=== PATIENT | male | born 1985 | race Caucasian/White ===

== ENCOUNTER 2020-07-01 16:55 | Emergency (ER) | payer OTHER, SELFPAY ==
[2020-07-01 17:11] VITALS: BP 152/89; PULSE 87; RESP 16; TEMP 36.7; O2SAT 97
--- NOTE | 2020-07-01 17:16 | DI.RAD.S_ITS ---
PROCEDURE: XR TOE RT MIN 2V INDICATIONS: dropped concrete on toe TECHNIQUE: 2 views of the 1st toe(s) acquired. COMPARISON: None. FINDINGS: Bones: No fractures or dislocations. No suspicious bony lesions. Bipartite medial sesamoid. Soft tissues: No suspicious soft tissue densities. IMPRESSION: No fracture or dislocation. Dictated by: Mary Dunn M.D. on 07/01/2020 at 16:48 Approved by: Mary Dunn M.D. on 07/01/2020 at 16:51
[2020-07-01] MEDS: TET,DIPH,PERTUSS(ACELL),VAC/PF 0.5 ML SYRINGE IM (20:01)
[2020-07-01] MEDS: KETOROLAC 60 MG/2 ML VIAL 30 MG IM (20:03)
--- NOTE | 2020-07-01 20:13 | ED.LOWEXIN ---
HPI - Extremity Injury (Lower) <FABIANA Lopez - Last Filed: 07/01/20 20:24> General Chief Complaint: Extremity Injury, Lower Stated Complaint: dropped heavy item on right foot Time Seen by Provider: 07/01/20 19:19 Source: patient Mode of arrival: Ambulatory Limitations: no limitations History of Present Illness HPI Narrative: The patient is a 34-year-old male nonsmoker who denies pertinent medical history presents with a chief complaint of having dropped a heavy item on his right foot. He states that he accidentally dropped a piece of cement wrapped in metal on his right foot at approximately 2:30 p.m.. He states that his bruise, painful to move, has an abrasion on the top. Denies any previous injuries to this foot. States he can bear weight. Related Data Previous Rx's Medication Instructions Recorded amoxicillin-pot clavulanate 875 mg PO BID #19 tab 10/10/17 [Augmentin] Allergies Allergy/AdvReac Type Severity Reaction Status Date / Time No Known Drug Allergies Allergy Verified 07/01/20 19:28 Review of Systems <FABIANA Lopez - Last Filed: 07/01/20 20:24> Review of Systems Narrative: GENERAL: Denies chills, fatigue, malaise, fever, sweats. HEENT: Denies sinus pain, ear pain, sore throat, difficulty swallowing, dizziness. RESPIRATORY: Denies dyspnea, cough, wheezing, hemoptysis, sputum. CARDIOVASCULAR: Denies chest pain, palpitations, orthopnea, edema, GASTROINTESTINAL: Denies nausea, vomiting, abdominal pain, diarrhea, constipation, melena. : Denies dysuria, frequency, incontinence, hematuria, urinary retention. MUSCULOSKELETAL: See HPI SKIN: See HPI NEUROLOGIC: Denies weakness, headache, numbness, change in speech, confusion, seizures, incoordination. PSYCHIATRIC: No concerning psychosocial issues. 12 point review of systems is negative except for those stated above Patient History <FABIANA Lopez - Last Filed: 07/01/20 20:24> Social History Smoking Status: Never smoker Smoking Status: Never smoker alcohol intake frequency: a few times a month Substance Use Type: does not use Exam <FABIANA Lopez Last Filed: 07/01/20 20:24> Narrative Exam Narrative: GENERAL: This is a well-nourished, well-developed patient, in no acute distress HEAD: Atraumatic. Normocephalic. No temporal or scalp tenderness. EYES: Pupils equal round and reactive. Extraocular motions intact. No scleral icterus. No injection or drainage. ENT: Nose without bleeding, purulent drainage or septal hematoma. Wearing a mass. Airway patent. NECK: Trachea midline. No JVD or lymphadenopathy. Supple, nontender, no meningeal signs. CARDIOVASCULAR: Regular rate and rhythm RESPIRATORY: No cough. No increased respiratory effort. No accessory muscle GASTROINTESTINAL: Abdomen soft, non-tender, nondistended. No hepato-splenomegaly, or palpable masses. No guarding. EXTREMITIES: Right great toe with ecchymosis from bottom of nail down on to dorsum of foot. Abrasion noted at base of nail. 2 mm subungual hematoma noted. Positive pedal pulses right foot. Able to flex and extend right toe against resistance. Decreased range of motion all gay. Cap refill less than 2 seconds right great toe. NEURO: AOx3. SKIN: See extremity exam Initial Vital Signs Initial Vital Signs: Vital Signs Temperature 98.1 F 07/01/20 17:11 Pulse Rate 87 07/01/20 17:11 Respiratory Rate 16 07/01/20 17:11 Blood Pressure 152/89 H 07/01/20 17:11 Pulse Oximetry 97 07/01/20 17:11 <Hetal Gil MD - Last Filed: 07/02/20 01:42> Initial Vital Signs Initial Vital Signs: Vital Signs Temperature 98.1 F 07/01/20 17:11 Pulse Rate 87 07/01/20 17:11 Respiratory Rate 16 07/01/20 17:11 Blood Pressure 152/89 H 07/01/20 17:11 Pulse Oximetry 97 07/01/20 17:11 Procedures <FABIANA Lopez - Last Filed: 07/01/20 20:24> Orthopedic Splinting/Casting Injury #1: Side: left Lower Extremity Injury Location: foot Lower Extremity Immobilizer: post-op shoe Post splinting neuro exam: intact Post splinting vascular exam: intact Scores <FABIANA Lopez - Last Filed: 07/01/20 20:24> GCS Didier coma scale eye opening: Spontaneous Didier coma scale verbal response: Orientated Didier coma scale motor response: Obey commands Didier coma scale total score: 15 Course <FABIANA Lopez - Last Filed: 07/01/20 20:24> Orders Ordered: ED Orders 07/01/20 17:16 XR toe RT min 2V Stat Discontinued Medications Diphtheria/Tetanus/Acell Pertussis (Adacel) 0.5 ml IM .ONCE ONE Stop: 07/01/20 19:24 Last Admin: 07/01/20 20:01 Dose: 0.5 ml Documented by: YING Ketorolac Tromethamine (Toradol) 30 mg IM NOW ONE Stop: 07/01/20 19:24 Last Admin: 07/01/20 20:03 Dose: 30 mg Documented by: YING Vital Signs Vital signs: Vital Signs - 8 hr 07/01/20 20:22 Pulse Rate 62 Respiratory Rate 14 Blood Pressure 147/97 H Pulse Oximetry 100 <Hetla Gil MD - Last Filed: 07/02/20 01:42> Orders Ordered: ED Orders 07/01/20 17:16 XR toe RT min 2V Stat Discontinued Medications Diphtheria/Tetanus/Acell Pertussis (Adacel) 0.5 ml IM .ONCE ONE Stop: 07/01/20 19:24 Last Admin: 07/01/20 20:01 Dose: 0.5 ml Documented by: YING Ketorolac Tromethamine (Toradol) 30 mg IM NOW ONE Stop: 07/01/20 19:24 Last Admin: 07/01/20 20:03 Dose: 30 mg Documented by: YING Vital Signs Vital signs: Vital Signs - 8 hr 07/01/20 20:22 Pulse Rate 62 Respiratory Rate 14 Blood Pressure 147/97 H Pulse Oximetry 100 MDM - Extremity Injury (Lower) <FABIANA Lopez - Last Filed: 07/01/20 20:24> Imaging Data Extremity x-ray #1: Radiologist's Impression: [address] [place] [id number] XRay Report Signed Patient: Donta Bill RMR#: [id number] : 1985Acct:[id number] Age/Sex: 34 / MDate of Service: 07/01/20 Loc: ED Accession Number: [id number] Procedure: XR toe RT min 2V Ordering Provider: Lucrecia Means D.O. PROCEDURE: XR TOE RT MIN 2V INDICATIONS: dropped concrete on toe TECHNIQUE: 2 views of the 1st toe(s) acquired. COMPARISON: None. FINDINGS: Bones: No fractures or dislocations. No suspicious bony lesions. Bipartite medial sesamoid. Soft tissues: No suspicious soft tissue densities. IMPRESSION: No fracture or dislocation. Dictated by: Mary Dunn M.D. on 07/01/2020 at 16:48 Approved by: Mary Dunn M.D. on 07/01/2020 at 16:51 [facility] Narrative Medical decision making narrative: The patient is a 34-year-old male who presents with a chief complaint of right great toe injury after dropping cement on it. X-rays negative. Patient is neurovascularly intact. Encouraged rest ice compression elevation as well as [id number] pain medications as needed and able. Given abrasion, tetanus was updated. Discussed monitoring for signs and symptoms of infection such as red as swelling pus etcetera. Discussed the possibility of an occult fracture and encouraged follow-up with a primary care provider or [facility] provider in the next few days. Patient has no questions or concerns upon discharge and states understanding return precautions as well as follow-up care discussed coming back to the ER for acute concerns such as decreased circulation to toes. Patient declines pain medication prescription. Discharge Plan Departure Patient Disposition: Home Clinical Impression: Abrasion Contusion of toe of right foot Qualifiers: Encounter type: initial encounter Toe: great toe Damage to nail status: without damage Qualified Code(s): S90.111A - Contusion of right great toe without damage to nail, initial encounter Discharge Date/Time: 07/01/20 20:37 Instructions: DI for Contusion, DI for Abrasion Activity Restrictions/Additional Instructions: As I discussed, your x-ray shows no acute fracture. This does not rule out a soft tissue injury such as a ligament or tendon injury. It is important that you follow up with primary care provider, especially if worsening or no improvement. There can be fractures that did not show up on initial x-ray. I discussed, please use rest ice compression elevation as well as [id number] pain medications as needed and able. Please follow-up with [facility] provider. Have also given you contact information [facility] health patient resource coordinator, who can help you identify new primary care provider in the area. Please come back to emergency department for any acute concerns such as chest pain, shortness of breath, concern of heart attack or stroke or lack of circulation to your toe. Prescriptions: No Action amoxicillin-pot clavulanate [Augmentin] 875 MG/125 MG tablet 875 mg PO BID Qty: 19 RF: 0 Referrals: [facility] [Outside] Stand Alone Forms: Work Release Note <Hetal Gil MD - Last Filed: 07/02/20 01:42> [facility] I was immediately available in the department for consultation throughout this patient's visit. I agree with documentation as above. Hetal Gil MD
[2020-07-01 20:22] VITALS: BP 147/97; PULSE 62; RESP 14; O2SAT 100
== END 2020-07-01 20:37 | disposition home or self-care (01) ==
PROVIDERS: Emergency Provider Nurse Practitioner Family
DX: S90.111A Contusion of right great toe without damage to nail, initial encounter (principal); S90.811A Abrasion, right foot, initial encounter; W22.8XXA Striking against or struck by other objects, initial encounter; Z23 Encounter for immunization; Y99.0 Civilian activity done for income or pay
CPT/HCPCS: 73660; 90471; 96372; 99283; 99284; 90715; J1885

== ENCOUNTER 2020-07-27 04:29 | Emergency (ER) | payer OTHER, SELFPAY ==
[2020-07-27] VITALS (9 sets, daily range): BP systolic 108–143; BP diastolic 60–92; PULSE 74–101; RESP 18; TEMP 36.4; O2SAT 91–99; BMI 34.8
--- NOTE | 2020-07-27 04:47 | DI.CT.S_ITS ---
PROCEDURE: CT KIDNEY URETER BLADDER (KUB) INDICATIONS: severe left flank pain TECHNIQUE: Noncontrast 5 mm thick sections acquired from the diaphragms to the symphysis. 5 mm thick coronal and sagittal reformats were then performed. For radiation dose reduction, the following was used: automated exposure control, adjustment of mA and/or kV according to patient size. COMPARISON: None. FINDINGS: Image quality: Excellent. Lung bases: Lung bases are clear. Heart size is normal. Urinary system: Both kidneys are normal in size. No kidney stones. Mild left hydronephrosis and left hydroureter secondary to distal ureteral stone measuring 2 mm seen on axial image 84. Distal ureteral stone visualized near the level of the left ureterovesicular junction. No hydronephrosis or perinephric fat stranding. Right ureter is normal in course and caliber. Bladder wall thickness is normal; no calcified bladder stones. Other solid organs: Liver is normal in size. Gallbladder is unremarkable. Pancreas is normal in contours. Spleen is normal in size. No adrenal nodules. Peritoneum and bowel: Unenhanced bowel loops demonstrate normal wall thickness and caliber. No free fluid or air. Normal appendix. Nodes and vessels: No retroperitoneal or mesenteric adenopathy by size criteria. Aorta and inferior vena cava are normal in caliber. Abdominal wall: No ventral hernias. Pelvis: No free pelvic fluid. No inguinal hernias or adenopathy. Bones: No suspicious bony lesions. No acute vertebral body compression fractures. IMPRESSION: Obstructing 2 mm distal left ureteral stone with associated mild left hydroureteronephrosis. No significant discrepancy with the scene shifter radiology preliminary report. Dictated by: Andrew Marie M.D. on 07/27/2020 at 7:31 Approved by: Andrew Marie M.D. on 07/27/2020 at 7:36
[2020-07-27 05:02] LABS: Add Manual Diff / Slide Review NO; Basophils Absolute Auto 300 /uL (0-100); Basophils Percent Auto 2.1 % (0-2); Eosinophils Absolute Auto 200 /uL (0-450); Eosinophils Percent Auto 1.1 % (2-4); Hematocrit 44.2 % (41-53); Hemoglobin 15.2 g/dL (13.5-17.5); Lymphocytes Absolute Auto 3200 /uL (1100-4500); Lymphocytes Percent Auto 21.7 % (25-40); Mean Corpuscular HGB Conc 34.3 % (30-36); Mean Corpuscular Hemoglobin 29.8 PG (26-34); Mean Corpuscular Volume 86.7 fL (80-100); Monocytes Absolute Auto 500 /uL (0-900); Monocytes Percent Auto 3.4 % (3-14); Neutrophils Absolute Auto 10400 /uL (1500-7000); Neutrophils Percent Auto 71.7 % (50-75); Platelet Count 247 X10^3/uL (150-400); Red Blood Cell Count 5.09 X10^6/uL (4.5-5.9); Red Cell Distribution Width 13.9 % (11.6-14.8); White Blood Cell Count 14.5 X10^3/uL (4.5-11.0)
[2020-07-27] MEDS: SODIUM CHLORIDE 0.9% 1,000 ML 1000 ML IV (05:02)
[2020-07-27] MEDS: KETOROLAC 60 MG/2 ML VIAL 15 MG IV (05:02)
[2020-07-27 05:09] LABS: BUN Creatinine Ratio 24.1 (6-22); Blood Urea Nitrogen 20 mg/dL (9-20); Calcium 9.1 mg/dL (8.4-10.2); Carbon Dioxide 22 mmol/L (22-32); Chloride 107 mmol/L (98-107); Estimated Glomerular Filt Rate > 60.0 mL/min (>60); Glucose 132 mg/dL (70-100); HEMOLYSIS 15 (0-50); Potassium 3.9 mmol/L (3.4-5.1); Sodium 139 mmol/L (137-145)
[2020-07-27] MEDS: SODIUM CHLORIDE 0.9% IV (05:22)
[2020-07-27] MEDS: LIDOCAINE 2% IV (05:22)
--- NOTE | 2020-07-27 05:33 | ED_ITS ---
HPI - Male Genitourinary General Chief complaint: Urogenital-Male Stated complaint: woke up with pain in kidney area Time Seen by Provider: 07/27/20 04:30 Source: patient and family Mode of arrival: Ambulatory Limitations: no limitations History of Present Illness HPI Narrative: 34-year-old male nonsmoker with noncontributory medical history presents with his father and a chief complaint of a sudden onset and severe left flank pain that woke him up about an hour ago. He states that since then he has been unable to urinate. He denies any fever chills but has been nauseated. He denies any provocation, palliation or radiation of his pain and states it seems to come and go with a mind of its. Furthermore, he finds that when the pain intensifies he finds himself pacing and attempt to become more comfortable. He has had no constipation or diarrhea. He denies any burning, frequency or urgency with urinating into this. He denies any history of kidney stones. He denies any exposure to persons known to have coronavirus Onset (ago): hour(s) Duration: intermittent and progressively worsening Radiation: left flank Relieving factors: none Exacerbating factors: none Related Data Previous Rx's Medication Instructions Recorded amoxicillin-pot clavulanate 875 mg PO BID #19 tab 10/10/17 [Augmentin] hydrocodone-acetaminophen 1 tab PO Q4-6H PRN #10 tab 07/27/20 ketorolac 10 mg PO Q6H PRN #14 tab 07/27/20 ondansetron 4 mg PO TID-QID PRN #10 tab 07/27/20 tamsulosin [Flomax] 0.4 mg PO DAILY #10 cap 07/27/20 Allergies Allergy/AdvReac Type Severity Reaction Status Date / Time No Known Drug Allergies Allergy Verified 07/01/20 19:28 Review of Systems Constitutional Constitutional: Denies chills, Denies fatigue, Denies fever(s), Denies frequent falls, Denies lethargy and Denies weakness Eyes Eyes: Denies change in vision, Denies eye discharge, Denies irritation and Denies loss of vision ENT Ears, Nose, Mouth, and Throat: Denies change in voice, Denies dizziness, Denies neck pain, Denies sore throat and Denies throat swelling Cardiovascular Cardiovascular: Denies chest pain, Denies irregular heart rhythm, Denies lightheadedness, Denies palpitations, Denies dyspnea, Denies dyspnea on exertion and Denies orthopnea Respiratory Respiratory: Denies cough, Denies dyspnea, Denies dyspnea on exertion and Denies wheezing Gastrointestinal Gastrointestinal: Denies abdominal pain, Denies change in bowel habits, Denies diarrhea, Denies nausea and Denies vomiting Musculoskeletal Musculoskeletal: Denies neck pain and Denies numbness Integumentary/Breasts Skin/Breast: Denies pruritus, Denies erythema, Denies rash and Denies wounds Neurologic Neurologic: Denies behavioral changes, Denies confusion, Denies dizziness, Denies frequent falls, Denies loss of vision, Denies numbness and Denies weakness Psychiatric Psychiatric: Denies anxiety, Denies behavioral changes, Denies confusion, Denies depression, Denies homicidal ideation and Denies suicidal ideation Endocrine Endocrine: Denies fatigue, Denies flushing and Denies palpitations Hematologic/Lymphatic Hematologic/Lymphatic: Denies easy bruising Allergic/Immunologic Allergic/Immunologic: Denies urticaria, Denies throat swelling and Denies wheezing Patient History Social History Smoking Status: Never smoker Smoking Status: Never smoker alcohol intake frequency: a few times a month Substance Use Type: does not use Exam Initial Vital Signs Initial Vital Signs: Vital Signs Pulse Rate 84 07/27/20 04:43 Blood Pressure 143/92 H 07/27/20 04:43 Pulse Oximetry 99 07/27/20 04:43 Course Orders Ordered: ED Orders 07/27/20 04:47 CT kidney ureter bladder (KUB) Stat 07/27/20 04:53 Basic Metabolic Panel Stat Complete Blood Count AUTO DIFF Stat 07/27/20 07:15 Urine Microscopic Stat Discontinued Medications Hydrocodone Bitart/Acetaminophen (Vicodin 5/325 Prepack) 1 bottle MISC SEEINSTR ONE Stop: 07/27/20 07:23 Hydromorphone HCl (Dilaudid) 1 mg IV NOW ONE Stop: 07/27/20 05:31 Last Admin: 07/27/20 05:35 Dose: 1 mg Documented by: EBONY Hydromorphone HCl (Dilaudid) 0.5 mg IV NOW ONE Stop: 07/27/20 05:55 Last Admin: 07/27/20 06:05 Dose: 0.5 mg Documented by: EBONY Sodium Chloride (Normal Saline 0.9%) 1,000 mls @ 1,000 mls/hr IV BOLUS ONE Stop: 07/27/20 05:46 Last Infusion: 07/27/20 06:36 Dose: 0 mls/hr Documented by: Admin: 07/27/20 05:02 Dose: 1,000 mls/hr Documented by: EBONY Lidocaine HCl 8.5 ml/ Sodium (Chloride) 58.5 mls @ 351 mls/hr IV NOW ONE Stop: 07/27/20 05:16 Last Infusion: 07/27/20 05:36 Dose: 0 mls/hr Documented by: Admin: 07/27/20 05:22 Dose: 351 mls/hr Documented by: EBONY Ketorolac Tromethamine (Toradol) 15 mg IV NOW ONE Stop: 07/27/20 04:48 Last Admin: 07/27/20 05:02 Dose: 15 mg Documented by: EBONY Ondansetron HCl (Zofran) 4 mg IV NOW ONE Stop: 07/27/20 05:31 Last Admin: 07/27/20 05:35 Dose: 4 mg Documented by: EBONY Ondansetron HCl (Zofran Odt Prepack) 1 bottle MISC SEEINSTR ONE Stop: 07/27/20 07:23 Vital Signs Vital signs: Vital Signs - 8 hr 07/27/20 04:43 07/27/20 04:46 07/27/20 05:30 Temperature 97.5 F L Pulse Rate 84 83 78 Respiratory Rate 18 Blood Pressure 143/92 H 143/92 H Pulse Oximetry 99 99 98 07/27/20 06:00 07/27/20 06:16 07/27/20 06:30 Temperature Pulse Rate 74 76 89 Respiratory Rate Blood Pressure 124/76 127/76 Pulse Oximetry 95 91 96 MDM - Male Genitourinary Lab Data Result diagrams: 07/27/20 04:53 07/27/20 04:53 Labs: Lab Results 07/27/20 07/27/20 Range/Units 04:53 04:53 WBC 14.5 H (4.5-11.0) X10^3/uL RBC 5.09 (4.5-5.9) X10^6/uL Hgb 15.2 (13.5-17.5) g/dL Hct 44.2 (41-53) % MCV 86.7 (80-100) fL MCH 29.8 (26-34) PG MCHC 34.3 (30-36) % RDW 13.9 (11.6-14.8) % Plt Count 247 (150-400) X10^3/uL Neut % (Auto) 71.7 (50-75) % Lymph % (Auto) 21.7 L (25-40) % Mcdonald % (Auto) 3.4 (3-14) % Eos % (Auto) 1.1 L (2-4) % Baso % (Auto) 2.1 H (0-2) % Neut # (Auto) 73771 H (9587-9100) /uL Lymph # (Auto) 3200 (7855-3989) /uL Mcdonald # (Auto) 500 (0-900) /uL Eos # (Auto) 200 (0-450) /uL Baso # (Auto) 300 H (0-100) /uL Sodium 139 (137-145) mmol/L Potassium 3.9 (3.4-5.1) mmol/L Chloride 107 (98-107) mmol/L Carbon Dioxide 22 (22-32) mmol/L BUN 20 (9-20) mg/dL Creatinine 0.83 (0.66-1.25) mg/dL Estimated GFR > 60.0 (>60) mL/min BUN/Creatinine Ratio 24.1 H (6-22) Glucose 132 H (70-100) mg/dL Calcium 9.1 (8.4-10.2) mg/dL Urine Dip Bedside Urine Glucose Negative Bedside Urine Bilirubin - Negative Bedside Urine Ketone +/- 5 Urine Specific [place] 1.03 Bedside Urine Occult Blood + Bedside Urine pH 6 Bedside Urine Protein - Negative Bedside Urine Urobilinogen - Negative Bedside Urine Nitrite - Negative Bedside Urine Leukocytes - Negative Esterase Discharge Plan Departure Patient Disposition: Home Clinical Impression: Kidney stone on left side Instructions: DI for Kidney Stones Activity Restrictions/Additional Instructions: *You have been diagnosed with [acute left-sided kidney stone] *What to do: *Take medications as directed *Follow up with your primary care provider in 2-3 days, call for an appointment. Let them know you were seen in the Emergency Department and that we ask that you be seen in follow up *Return to ER if you should have any new, worsening or concerning symptoms Prescriptions: New hydrocodone-acetaminophen 5-325 mg tablet 1 tab PO Q4-6H PRN (Reason: pain) Qty: 10 RF: 0 ketorolac 10 mg tablet 10 mg PO Q6H PRN (Reason: pain) Qty: 14 RF: 0 tamsulosin [Flomax] 0.4 mg capsule 0.4 mg PO DAILY Qty: 10 RF: 0 ondansetron 4 mg tablet,disintegrating 4 mg PO TID-QID PRN (Reason: nausea and vomiting) Qty: 10 RF: 0 No Action amoxicillin-pot clavulanate [Augmentin] 875 MG/125 MG tablet 875 mg PO BID Qty: 19 RF: 0 Referrals: Bruce Guerra MD [Physician] -
[2020-07-27] MEDS: HYDROMORPHONE 1 MG INJ IV (05:35)
[2020-07-27] MEDS: ONDANSETRON 4 MG/2 ML INJ IV (05:35)
[2020-07-27] MEDS: HYDROMORPHONE 0.5 MG INJ IV (06:05)
[2020-07-27] MEDS: HYDROCODONE/ACET 5/325 PREPACK 1 BOTTLE MISC (08:00)
[2020-07-27] MEDS: ONDANSETRON 4 MG ODT PREPACK 1 BOTTLE MISC (08:00)
[2020-07-27 08:20] LABS: Bacteria Urine Few (2-10); Culture Indicated Urine Cult Not Indicated; Mucus Urine 1+ (Negative); RBC Urine 30-100/HPF (0-5/HPF); WBC Urine 1-5/HPF (0-5/HPF)
== END 2020-07-27 08:14 | disposition home or self-care (01) ==
PROVIDERS: Emergency Provider Emergency Medicine
DX: N20.0 Calculus of kidney (principal)
CPT/HCPCS: 36415; 74176; 80048; 81003; 81015; 85025; 96361; 96374; 96375; 96376; 99284; J1170; J1885; J2405

== ENCOUNTER 2020-10-05 01:24 | Emergency (ER) | payer OTHER, SELFPAY ==
--- NOTE | 2020-10-05 02:04 | ED.GENADULT ---
HPI - General Adult General Chief complaint: Abdominal Pain Stated complaint: kidney pain Time Seen by Provider: 10/05/20 01:27 Source: patient Mode of arrival: Ambulatory Limitations: no limitations History of Present Illness HPI narrative: Patient is a 35-year-old male here for evaluation of left-sided flank pain. Patient states that it feels like a kidney stone that he had earlier this year. Started earlier in the day. Came into the emergency department because the pain was becoming unbearable for him at home. No fevers. Is able to urinate but does have urgency and frequency and hesitancy. He states that his last kidney stone he was able to pass on its own after 2 days. Related Data Previous Rx's Medication Instructions Recorded amoxicillin-pot clavulanate 875 mg PO BID #19 tab 10/10/17 [Augmentin] hydrocodone-acetaminophen 1 tab PO Q4-6H PRN #10 tab 07/27/20 ketorolac 10 mg PO Q6H PRN #14 tab 07/27/20 ondansetron 4 mg PO TID-QID PRN #10 tab 07/27/20 tamsulosin [Flomax] 0.4 mg PO DAILY #10 cap 07/27/20 hydrocodone-acetaminophen [[place]] 1 tab PO Q4-6H PRN #10 tab 10/05/20 ondansetron 4 mg PO Q6H PRN #14 tab 10/05/20 tamsulosin [Flomax] 0.4 mg PO DAILY #7 cap 10/05/20 Allergies Allergy/AdvReac Type Severity Reaction Status Date / Time No Known Drug Allergies Allergy Verified 07/01/20 19:28 Review of Systems Constitutional Constitutional: Denies fever(s) Gastrointestinal Comments: Left-sided flank pain Genitourinary Genitourinary: Denies dysuria, Reports urinary hesitancy and Reports urinary urgency Genitourinary: Denies dysuria, Reports urinary hesitancy and Reports urinary urgency Integumentary/Breasts Skin/Breast: Denies rash Neurologic Neurologic: Denies behavioral changes Psychiatric Psychiatric: Denies behavioral changes Hematologic/Lymphatic Hematologic/Lymphatic: Denies easy bleeding and Denies easy bruising Allergic/Immunologic Allergic/Immunologic: Denies urticaria Patient History Medical History Cervical lymphadenopathy Kidney stones Social History Smoking Status: Never smoker Smoking Status: Never smoker alcohol intake frequency: a few times a month Substance Use Type: does not use Exam Initial Vital Signs Initial Vital Signs: Vital Signs Temperature 98.1 F 10/05/20 02:07 Pulse Rate 95 H 10/05/20 02:07 Respiratory Rate 20 10/05/20 02:07 Blood Pressure 149/87 H 10/05/20 02:07 Pulse Oximetry 97 10/05/20 02:07 Const General: cooperative, healthy appearing and comfortable Limitations: mental status not altered HENMT Head: normal to inspection and normocephalic Resp Effort & Inspection: normal respiratory effort Cardio Rate: regular rate GI Inspection: non-distended Palpation: soft and No firm Back/Spine/Pelvis Back: No CVA tenderness Skin Lesions: no lesions Rashes: no rashes Neuro General: patient alert and patient awake Cognition: normal cognition Speech: speech normal Extrem General: normal to inspection and capillary refill normal Psych Appearance: grossly normal and well kempt Course Orders Ordered: ED Orders 10/05/20 02:20 Basic Metabolic Panel Stat Complete Blood Count AUTO DIFF Stat Discontinued Medications Hydrocodone Bitart/Acetaminophen (Hydrocodone/Acet 5/325 Prepack) 1 bottle MISC SEEINSTR ONE Stop: 10/05/20 04:31 Last Admin: 10/05/20 04:37 Dose: 1 bottle Documented by: Hydromorphone HCl (Hydromorphone 0.5 Mg Inj) 0.5 mg IV NOW ONE Stop: 10/05/20 02:44 Last Admin: 10/05/20 02:48 Dose: 0.5 mg Documented by: Lidocaine HCl 9 ml/ Sodium (Chloride) 59 mls @ 354 mls/hr IV NOW ONE Stop: 10/05/20 03:35 Last Infusion: 10/05/20 03:58 Dose: Infused Documented by: Ketorolac Tromethamine (Ketorolac 60 Mg/2 Ml Vial) 30 mg IV NOW ONE Stop: 10/05/20 02:05 Last Admin: 10/05/20 02:21 Dose: 30 mg Documented by: Ondansetron HCl (Ondansetron 4 Mg/2 Ml Inj) 4 mg IV NOW ONE Stop: 10/05/20 02:05 Last Admin: 10/05/20 02:21 Dose: 4 mg Documented by: Ondansetron HCl (Ondansetron 4 Mg Odt Prepack) 1 bottle MISC SEEINSTR ONE Stop: 10/05/20 04:31 Last Admin: 10/05/20 04:37 Dose: 1 bottle Documented by: Vital Signs Vital signs: Vital Signs - 8 hr 10/05/20 02:07 10/05/20 03:38 10/05/20 03:39 Temperature 98.1 F Pulse Rate 95 H 76 80 Respiratory Rate 20 13 Blood Pressure 149/87 H 130/82 Pulse Oximetry 97 10/05/20 04:00 10/05/20 04:31 Temperature Pulse Rate 78 75 Respiratory Rate 22 12 Blood Pressure 134/75 113/73 Pulse Oximetry 98 Medical Decision Making Lab Data Lab results reviewed: Yes I reviewed the patient's lab results. Result diagrams: 10/05/20 02:20 10/05/20 02:20 Labs: Lab Results 10/05/20 10/05/20 Range/Units 02:20 02:20 WBC 16.9 H (4.5-11.0) X10^3/uL RBC 5.08 (4.5-5.9) X10^6/uL Hgb 14.9 (13.5-17.5) g/dL Hct 44.7 (41-53) % MCV 88.0 (80-100) fL MCH 29.4 (26-34) PG MCHC 33.4 (30-36) % RDW 13.7 (11.6-14.8) % Plt Count 275 (150-400) X10^3/uL Neut % (Auto) Not Reportable Lymph % (Auto) Not Reportable [place] % (Auto) Not Reportable Eos % (Auto) Not Reportable Baso % (Auto) Not Reportable Lymph # (Auto) Not Reportable [place] # (Auto) Not Reportable Baso # (Auto) Not Reportable Total Counted 100 Seg Neutrophils % 80.0 H (38-70) % Band Neutrophils % 3.0 (3-7) % Lymphocytes % (Manual) 15.0 L (25-45) % Monocytes % (Manual) 2.0 (2-11) % Neutrophils # (Manual) 23872 H (3550-6367) /uL RBC Morphology Normal morphology Sodium 136 L (137-145) mmol/L Potassium 4.3 (3.4-5.1) mmol/L Chloride 104 (98-107) mmol/L Carbon Dioxide 24 (22-32) mmol/L BUN 24 H (9-20) mg/dL Creatinine 1.20 (0.66-1.25) mg/dL Estimated GFR > 60.0 (>60) mL/min BUN/Creatinine Ratio 20.0 (6-22) Glucose 127 H (70-100) mg/dL Calcium 9.1 (8.4-10.2) mg/dL Urine Dip Bedside Urine Glucose Negative Bedside Urine Bilirubin - Negative Bedside Urine Ketone - Negative Urine Specific [place] 1.030 Bedside Urine Occult Blood +++ Bedside Urine pH 6.0 Bedside Urine Protein - Negative Bedside Urine Urobilinogen - Negative Bedside Urine Nitrite - Negative Bedside Urine Leukocytes - Negative Esterase Point of care testing: Urine Dip Bedside Urine Glucose Negative Bedside Urine Bilirubin - Negative Bedside Urine Ketone - Negative Urine Specific [place] 1.030 Bedside Urine Occult Blood +++ Bedside Urine pH 6.0 Bedside Urine Protein - Negative Bedside Urine Urobilinogen - Negative Bedside Urine Nitrite - Negative Bedside Urine Leukocytes - Negative Esterase MDM Narrative Medical decision making narrative: Patient does have leukocytosis however urinalysis is not consistent with infection. Patient states that his symptoms today feel very much like his prior kidney stone. Given his normal renal function in no of signs of a urinary tract infection on his urinalysis we will hold on a CT scan for the diagnosis of a stone is this is most likely the cause of his symptoms. Patient expressed understanding and agree with this. Patient given multiple doses of pain medication in the emergency department to try to control his symptoms. He stated that his symptoms were somewhat better but not completely resolved. Had a long discussion regarding symptoms. Will send home with symptom treatment. He was given strict return precautions. He does return were sore with a fever would recommend CT scan given the leukocytosis today. Discharge Plan Departure Patient Disposition: Home Clinical Impression: Acute left flank pain, Renal colic on left side Instructions: Kidney Stones (Alternative Therapy), Kidney Stones -- Adult Activity Restrictions/Additional Instructions: Take all medications as directed. If you can collect the stone and take it your primary doctor for evaluation that would be ideal however is not completely necessary. Contact her primary provider for a follow-up. Return to the emergency department for fevers, pain that is not controlled with the medications, inability to urinate, or any new or worsening symptoms Prescriptions: New tamsulosin [Flomax] 0.4 mg capsule 0.4 mg PO DAILY Qty: 7 RF: 0 ondansetron 4 mg tablet,disintegrating 4 mg PO Q6H PRN (Reason: nausea and vomiting) Qty: 14 RF: 0 hydrocodone-acetaminophen [[place]] 5-325 mg tablet 1 tab PO Q4-6H PRN (Reason: pain) Qty: 10 RF: 0 No Action amoxicillin-pot clavulanate [Augmentin] 875 MG/125 MG tablet 875 mg PO BID Qty: 19 RF: 0 hydrocodone-acetaminophen 5-325 mg tablet 1 tab PO Q4-6H PRN (Reason: pain) Qty: 10 RF: 0 ketorolac 10 mg tablet 10 mg PO Q6H PRN (Reason: pain) Qty: 14 RF: 0 tamsulosin [Flomax] 0.4 mg capsule 0.4 mg PO DAILY Qty: 10 RF: 0 ondansetron 4 mg tablet,disintegrating 4 mg PO TID-QID PRN (Reason: nausea and vomiting) Qty: 10 RF: 0
[2020-10-05 02:07] VITALS: BP 149/87; PULSE 95; RESP 20; TEMP 36.7; O2SAT 97
[2020-10-05] MEDS: KETOROLAC 60 MG/2 ML VIAL 30 MG IV (02:21)
[2020-10-05] MEDS: ONDANSETRON 4 MG/2 ML INJ IV (02:21)
[2020-10-05 02:35] LABS: Blood Urea Nitrogen 24 mg/dL (9-20); Calcium 9.1 mg/dL (8.4-10.2); Carbon Dioxide 24 mmol/L (22-32); Chloride 104 mmol/L (98-107); Estimated Glomerular Filt Rate > 60.0 mL/min (>60); Glucose 127 mg/dL (70-100); Potassium 4.3 mmol/L (3.4-5.1); Sodium 136 mmol/L (137-145)
[2020-10-05 02:36] LABS: Add Manual Diff / Slide Review YES; HEMOLYSIS 75 (0-50); Hematocrit 44.7 % (41-53); Hemoglobin 14.9 g/dL (13.5-17.5); Mean Corpuscular HGB Conc 33.4 % (30-36); Mean Corpuscular Hemoglobin 29.4 PG (26-34); Platelet Count 275 X10^3/uL (150-400); Red Blood Cell Count 5.08 X10^6/uL (4.5-5.9); Red Cell Distribution Width 13.7 % (11.6-14.8); White Blood Cell Count 16.9 X10^3/uL (4.5-11.0)
[2020-10-05] MEDS: HYDROMORPHONE 0.5 MG INJ IV (02:48)
[2020-10-05 03:01] LABS: Neutrophils Absolute Manual 14027 /uL (3000-5900); Total Cells Counted 100
[2020-10-05 03:02] LABS: RBC Morphology Normal Morphology
[2020-10-05 03:38] VITALS: PULSE 76
[2020-10-05 03:39] VITALS: BP 130/82; PULSE 80; RESP 13
[2020-10-05] MEDS: LIDOCAINE 2% IV (03:45)
[2020-10-05] MEDS: SODIUM CHLORIDE 0.9% IV (03:45)
[2020-10-05 04:00] VITALS: BP 134/75; PULSE 78; RESP 22
[2020-10-05 04:31] VITALS: BP 113/73; PULSE 75; RESP 12; O2SAT 98
[2020-10-05] MEDS: HYDROCODONE/ACET 5/325 PREPACK 1 BOTTLE MISC (04:37)
[2020-10-05] MEDS: ONDANSETRON 4 MG ODT PREPACK 1 BOTTLE MISC (04:37)
== END 2020-10-05 04:40 | disposition home or self-care (01) ==
PROVIDERS: Emergency Provider Emergency Medicine
DX: N23 Unspecified renal colic (principal); Z87.442 Personal history of urinary calculi
CPT/HCPCS: 36415; 80048; 81003; 85007; 85025; 96374; 96375; 99281; 99284; J1170; J1885; J2405

== ENCOUNTER 2021-05-09 15:58 | Emergency (ER) | payer OTHER, SELFPAY ==
[2021-05-09 16:25] VITALS: BP 167/110; PULSE 78; RESP 16; TEMP 36.8; O2SAT 99
--- NOTE | 2021-05-09 16:34 | DI.RAD.S_ITS ---
PROCEDURE: XR WRIST LT MIN 3V INDICATIONS: fall, pain right hand/wrist. TECHNIQUE: 4 views of the wrist were acquired. COMPARISON: None. FINDINGS: Bones: No definite fractures or dislocations. No suspicious bony lesions. Scaphoid view: Coracoclavicular and acromioclavicular intervals are maintained. Soft tissues: No suspicious soft tissue calcifications. There is mild soft tissue swelling over the radial margin of the distal radial metaphysis. IMPRESSION: No definite fracture visualized. However, given presence of mild soft tissue swelling overlying the radial margin of the distal radial metaphysis, an occult fracture not excluded given history of fall. Recommend immobilization and repeat imaging in 10-14 days. Dictated by: Andrew Marie M.D. on 05/09/2021 at 17:00 Approved by: Andrew Marie M.D. on 05/09/2021 at 17:01
--- NOTE | 2021-05-09 16:34 | DI.RAD.S_ITS ---
PROCEDURE: XR HAND LT MIN 3V INDICATIONS: fall, pain right hand/wrist. TECHNIQUE: 3 views of the hand(s) acquired. COMPARISON: [facility], CR, XR WRIST LT MIN 3V, 05/09/2021, 16:33. FINDINGS: Bones: No definite fractures or dislocations. Carpal bones are normally aligned. No suspicious bony lesions. Soft tissues: No suspicious soft tissue calcifications. There is soft tissue swelling overlying the radial side of the distal radial metaphysis. IMPRESSION: No definite fracture visualized. However, given soft tissue swelling adjacent to the radial side of the distal radial metaphysis, occult fracture not excluded given history of fall. Recommend immobilization and repeat imaging in 10-14 days. Dictated by: Andrew Marie M.D. on 05/09/2021 at 16:57 Approved by: Andrew Marie M.D. on 05/09/2021 at 17:00
--- NOTE | 2021-05-09 19:59 | ED.UPPEXIN ---
HPI - Extremity Injury (Upper) General Chief Complaint: Extremity Injury, Upper Stated Complaint: Fell Off Ladder, Left Hand/Wrist Pain Time Seen by Provider: 05/09/21 19:59 Source: patient Mode of arrival: Ambulatory Limitations: no limitations History of Present Illness HPI narrative: This is a 35-year-old male who fell off a ladder. Patient states that he is not sure exactly how he landed but he has pain in his left hand over the dorsum. He also notes some swelling. Patient has full range of motion. He denies numbness, tingling or weakness. He denies hitting his head or any neck or back pain. He denies any other injuries. He denies any other symptoms. Patient states he was at work when this occurred. He has filled out L and I paperwork. Related Data Previous Rx's Medication Instructions Recorded amoxicillin 875 mg-potassium 875 mg PO BID #19 tab 10/10/17 clavulanate 125 mg tablet (Augmentin) hydrocodone 5 mg-acetaminophen 325 1 tab PO Q4-6H PRN #10 tab 07/27/20 mg tablet ketorolac 10 mg tablet 10 mg PO Q6H PRN #14 tab 07/27/20 ondansetron 4 mg disintegrating 4 mg PO TID-QID PRN #10 tab 07/27/20 tablet tamsulosin 0.4 mg capsule (Flomax) 0.4 mg PO DAILY #10 cap 07/27/20 hydrocodone 5 mg-acetaminophen 325 1 tab PO Q4-6H PRN #10 tab 10/05/20 mg tablet ([place]) ondansetron 4 mg disintegrating 4 mg PO Q6H PRN #14 tab 10/05/20 tablet tamsulosin 0.4 mg capsule (Flomax) 0.4 mg PO DAILY #7 cap 10/05/20 Allergies Allergy/AdvReac Type Severity Reaction Status Date / Time No Known Drug Allergies Allergy Verified 07/01/20 19:28 Review of Systems Review of Systems ROS Unobtainable: All systems reviewed & are unremarkable except as noted in HPI and below Patient History Medical History Cervical lymphadenopathy Kidney stones Social History Smoking Status: Never smoker Smoking Status: Never smoker alcohol intake frequency: a few times a month Substance Use Type: does not use Exam Narrative Exam Narrative: GENERAL: Alert and oriented x three, male in mild distress HEENT: Head normocephalic, atraumatic, EOMI, pupils reactive, face symmetric, moist mucous membranes NECK: Supple, full range of motion CARDIOVASCULAR: Regular rate and rhythm without murmurs, rubs or gallops. RESPIRATORY: Breath sounds equal bilaterally, no wheezes rales or rhonchi. ABDOMEN: Soft, nontender. Normoactive bowel sounds all 4 quadrants. No guarding or rebound, rigidity, no mass EXTREMITIES: Normal range of motion, no clubbing, localized swelling over 2nd metacarpal, mild tenderness, no warmth, erythema. Neurovascularly intact. Non-tender on the rest of left upper extremity exam. 5/5 muscle strength customer service officer equal bilaterally. Full range of motion of upper extremities. NEUROLOGICAL: Cranial nerves II through XII grossly intact. Moving all extremities SKIN: Warm, dry, no petechiae, no rashes or lesions. Initial Vital Signs Initial Vital Signs: Vital Signs Temperature 98.2 F 05/09/21 16:25 Pulse Rate 78 05/09/21 16:25 Respiratory Rate 16 05/09/21 16:25 Blood Pressure 167/110 H 05/09/21 16:25 Pulse Oximetry 99 05/09/21 16:25 Course Orders Ordered: ED Orders 05/09/21 16:34 XR hand LT min 3V Stat XR wrist LT min 3V Stat Vital Signs Vital signs: Vital Signs - 8 hr 05/09/21 16:25 Temperature 98.2 F Pulse Rate 78 Respiratory Rate 16 Blood Pressure 167/110 H Pulse Oximetry 99 MDM - Extremity Injury (Upper) Imaging Data Extremity x-ray #1: Radiologist's Impression: [address] [id number] ReportSigned Patient: Donta Bill RMR#: [id number]: 1985Acct:[id number]/Sex: 35 / MDate of Service: 05/09/21Loc: EDAccession Number: [id number] Procedure: XR wrist LT min 3V Ordering Provider: Lucrecia Means D.O. PROCEDURE: XR WRIST LT MIN 3V INDICATIONS: fall, pain right hand/wrist. TECHNIQUE: 4 views of the wrist were acquired. COMPARISON: None. FINDINGS: Bones: No definite fractures or dislocations. No suspicious bony lesions. Scaphoid view: Coracoclavicular and acromioclavicular intervals are maintained. Soft tissues: No suspicious soft tissue calcifications. There is mild soft tissue swelling over the radial margin of the distal radial metaphysis. IMPRESSION: No definite fracture visualized. However, given presence of mild soft tissue swelling overlying the radial margin of the distal radial metaphysis, an occult fracture not excluded given history of fall. Recommend immobilization and repeat imaging in 10-14 days. Dictated by: Andrew Marie M.D. on 05/09/2021 at 17:00 Approved by: Andrew Marie M.D. on 05/09/2021 at 17:01 Extremity x-ray #2: Radiologist's Impression: [address] [id number] ReportSigned Patient: Donta Bill RMR#: [id number]: 1985Acct:[id number]/Sex: 35 / MDate of Service: 05/09/21Loc: EDAccession Number: [id number] Procedure: XR hand LT min 3V Ordering Provider: Lucrecia Means D.O. PROCEDURE: XR HAND LT MIN 3V INDICATIONS: fall, pain right hand/wrist. TECHNIQUE: 3 views of the hand(s) acquired. COMPARISON: [facility], CR, XR WRIST LT MIN 3V, 05/09/2021, 16:33. FINDINGS: Bones: No definite fractures or dislocations. Carpal bones are normally aligned. No suspicious bony lesions. Soft tissues: No suspicious soft tissue calcifications. There is soft tissue swelling overlying the radial side of the distal radial metaphysis. IMPRESSION: No definite fracture visualized. However, given soft tissue swelling adjacent to the radial side of the distal radial metaphysis, occult fracture not excluded given history of fall. Recommend immobilization and repeat imaging in 10-14 days. Dictated by: Andrew Marie M.D. on 05/09/2021 at 16:57 Approved by: Andrew Marie M.D. on 05/09/2021 at 17:00 [facility] Narrative Medical decision making narrative: 35-year-old male with some mild swelling over the dorsum of his hand with reassuring physical exam as well as negative x-rays. Discharge Plan Departure Patient Disposition: Home Clinical Impression: Localized swelling on left hand, Injury of hand, left Instructions: DI for Hand Injury Activity Restrictions/Additional Instructions: Follow-up in 7-10 days for repeat x-ray imaging if your symptoms have not completely resolved. You can contact the L and I number for follow-up You may use Tylenol and/or ibuprofen as needed for pain You may use ice to the affected area every 10 minutes hourly as needed. Please return for rapidly worsening symptoms, loss of sensation, weakness numbness or tingling of your hand, redness, warmth or other new or concerning symptoms. Prescriptions: No Action amoxicillin-pot clavulanate [[place]mentin] 875 MG/125 MG tablet 875 mg PO BID Qty: 19 RF: 0 hydrocodone-acetaminophen 5-325 mg tablet 1 tab PO Q4-6H PRN (Reason: pain) Qty: 10 RF: 0 ketorolac 10 mg tablet 10 mg PO Q6H PRN (Reason: pain) Qty: 14 RF: 0 tamsulosin [Flomax] 0.4 mg capsule 0.4 mg PO DAILY Qty: 10 RF: 0 ondansetron 4 mg tablet,disintegrating 4 mg PO TID-QID PRN (Reason: nausea and vomiting) Qty: 10 RF: 0 tamsulosin [Flomax] 0.4 mg capsule 0.4 mg PO DAILY Qty: 7 RF: 0 ondansetron 4 mg tablet,disintegrating 4 mg PO Q6H PRN (Reason: nausea and vomiting) Qty: 14 RF: 0 hydrocodone-acetaminophen [[place]] 5-325 mg tablet 1 tab PO Q4-6H PRN (Reason: pain) Qty: 10 RF: 0
== END 2021-05-09 20:16 | disposition home or self-care (01) ==
PROVIDERS: Emergency Provider Emergency Medicine
DX: R60.0 Localized edema (principal); S69.92XA Unspecified injury of left wrist, hand and finger(s), initial encounter; W11.XXXA Fall on and from ladder, initial encounter; Y99.0 Civilian activity done for income or pay
CPT/HCPCS: 73110; 73130; 99283